=== PATIENT | female | born 1995 | race Caucasian/White ===

== ENCOUNTER 2016-12-12 21:07 | Emergency (ER) | payer BC ==
[2016-12-12 21:39] VITALS: BP 125/81
--- NOTE | 2016-12-12 22:35 | UC ---
Syncope/New Syncope HPI - HPI Summary HPI Summary: pt is accompanied by friend. Pt reports that today at ~ 3 pm she returned form a car ride that was ~ 3o minutes induration, go tour of the car, felt, lightheaded and dizzy. Denies LOC, nausea, vomiting, recent illness or injury. Pt reports that she was able to continue with her ADL's and then felt dizzy and light head at ~ 6 pm tonight with nausea. Denies risk of . - History Of Current Complaint Chief Complaint: UCDizziness Stated Complaint: DIZZINESS, AND NAUSEA Time Seen by Provider: 12/12/16 22:03 Hx Obtained From: Patient Hx Last Menstrual Period: 3.5 weeks ?: No Onset/Duration: Sudden Onset, Lasting Minutes Activity At Onset: Exertion Timing: Minutes Frequency: Episodes x___ - 2, Episodes Lasting ____ (in Mins/Days/Weeks/Years) - 20 minutes? pt unsure of duration Associated Head Trauma: No Aggravating Factor(s): Position Change, Exertion Alleviating Factor(s): Position Change, Rest Associated Signs And Symptoms: Positive: Dizzy, Lightheadedness - Risk Factors Cardiac Risk Factors: Negative Dysrhythmia Risk Factors: Negative Risk Factor(s): Negative - Allergies/Home Medications Allergies/Adverse Reactions: Allergies Allergy/AdvReac Type Severity Reaction Status Date / Time No Known Allergies Allergy Verified 12/12/16 21:33 Home Medications: Home Medications Norethin Acet & Estrad-Fe [Minastrin 24 Fe 1-20 mg-Mcg(24)] 1 tab PO DAILY 12/12 [History Confirmed 12/12/16] PMH/Surg Hx/FS Hx/Imm Hx Previously Healthy: Yes - Surgical History Surgery Procedure, Year, and Place: T & A @ 2001 - Family History Known Family History: Positive: Cardiac Disease - Social History Occupation: Student Alcohol Use: Weekly Substance Use Type: None Smoking Status (MU): Never Smoked Tobacco - Immunization History Most Recent Influenza Vaccination: 2015/2016 Review of Systems Constitutional: Negative Skin: Negative Eyes: Blurred Vision ENT: Other - hearing loss in right ear Respiratory: Negative Cardiovascular: Negative Gastrointestinal: Negative Genitourinary: Negative Motor: Negative Neurovascular: Negative Musculoskeletal: Negative Neurological: Negative Psychological: Negative All Other Systems Reviewed And Are Negative: Yes Physical Exam Triage Information Reviewed: Yes Appearance: Well-Appearing Vital Signs: Initial Vital Signs Temp 99.2 F 12/12/16 21:33 Pulse 72 12/12/16 21:33 Resp 17 12/12/16 21:33 BP 125/81 12/12/16 21:33 Pulse Ox 100 12/12/16 21:33 Vital Signs Reviewed: Yes Eye Exam: Normal ENT Exam: Other ENT: Positive: Other: - cerumen in right ear canal, I irrigated the pt's right ear and removed large amount of cerumen. Pt c/o that her "ear was tender. ear canal was cleared of cerumen but ear canal had creamy discharge in canal and ear canal skin appeared red, "raw" Neck exam: Normal Respiratory Exam: Normal Cardiovascular Exam: Normal Musculoskeletal Exam: Normal Neurological Exam: Normal Psychological Exam: Normal Skin Exam: Normal Syncope Course/Dx - Differential Dx/Diagnosis Differential Diagnosis/HQI/PQRI: Vasovagal Episode, Other - inner ear imbalance secondary to cerumen impaction and Otitis esterna, fungal Provider Diagnoses: dizziness. otitis externa- fungal Discharge - Discharge Plan Condition: Stable Disposition: HOME Prescriptions: Hydrocortisone W/Acetic Acid [Hydrocortisone/Acetic Aci 1-2 %] 3 % OT Q8HR #1 bottle Patient Education Materials: Otitis Externa (ED), Lightheadedness (ED), Dizziness (ED) Referrals: [facility] [facility] [Outside] Additional Instructions: Please follow up with your PCP or return to clinic. If your symptoms worsen please seek care at the closest healthcare facility
== END 2016-12-12 22:47 | disposition home or self-care (01) ==
LOC: UCEAST 21:07
DX: R42 Dizziness and giddiness (principal); H60.91 Unspecified otitis externa, right ear; H61.21 Impacted cerumen, right ear
CPT/HCPCS: 69209; 99202; G0463